=== PATIENT | female | born 1960 | race Caucasian/White ===

== ENCOUNTER 2017-09-23 11:00 | Outpatient (RCR) | payer BC ==
[~2017-09-23 11:00] MED LIST: AMBIEN10 MG PO; DITROPAN XL5 MG PO; TYLENOL # 31 EA PO
== END 2017-09-26 ==
LOC: OT 11:00
PROVIDERS: ATTEND Plastic Surgery
DX: M20.021 Boutonniere deformity of right finger(s) (principal); M79.641 Pain in right hand; M25.641 Stiffness of right hand, not elsewhere classified
CPT/HCPCS: 97010 ×5; 97110 ×5; 97165; L3933

== ENCOUNTER → 2018-06-13 | Day surgery (SDC) | payer BC ==
[~2018-06-13] MED LIST changes: +ACETAMINOPHEN 1000 MG/100 ML IV ONE; +AMLODIPINE BESYL5 MG PO; +BUPIVACAINE HCL 0.5% INJ 30 ML VIAL INJ ONE; +CEFAZOLIN SOD 1 GM VIAL ONE; +DEXAMETHASONE SOD PHOS INJ 4 MG/ML VIAL ONE; +FENTANYL CITRATE/PF 100MCG/2 ML INJ ONE; +KETOROLAC TROMETHAMINE 30 MG/ML VIAL ONE; +LIDOCAINE HCL 2% LOCAL INJ 5 ML SDV VIAL INJ ONE; +MAGNESIUM PO; +MIDAZOLAM HCL 2 MG/2 ML VIAL ONE; +ONDANSETRON HCL INJ 2 MG/ML VIAL ONE; +PROBIOTIC PO; +PROPOFOL IV EMULSION 10 MG/ML 20 ML VIAL ONE; +SEVOFLURANE INHAL SOLN 250 ML PEN BTL ONE; +VITAMIN D PO
--- NOTE | 2018-06-13 08:28 | Operative Report ---
DATE OF PROCEDURE: June 13, 2018 PREOPERATIVE DIAGNOSIS: Left ankle fracture lateral malleolus. POSTOPERATIVE DIAGNOSIS: Left ankle fracture lateral malleolus. PLANNED PROCEDURES: Left lateral malleolus open reduction and internal fixation. CARDIOTHORACIC ANESTHESIA TECHNICIAN: Tanja Rubi DPM ANESTHESIA: General with a postoperative block consisting of 10 mL of 0.5% Marcaine plain. HEMOSTASIS: Pneumatic thigh tourniquet set at 350 mmHg for a total time of approximately 40 minutes. MATERIALS: One Crzyfish 6-hole distal fibular anatomic plate; 7 screws, combination of locking and nonlocking, measuring between 12 mm and 16 mm; 3-0 Vicryl and 4-0 Prolene. PATHOLOGY: None. ESTIMATED BLOOD LOSS: Less than 10 mL. DETAILS OF PROCEDURE: Patient was seen in the preoperative waiting room where the correct procedure and site were identified. The patient was brought to the operating room and placed on the operating table in supine position. General anesthesia was initiated at this time. A well-padded pneumatic tourniquet was placed about the patient's left thigh. The left foot, ankle and leg were then scrubbed, prepped and draped in the usual aseptic manner. The left foot, ankle and leg were exsanguinated with an Esmarch bandage, and the pneumatic thigh tourniquet was inflated to 350 mmHg for a total time of approximately 40 minutes. Attention was directed to the lateral aspect of the left ankle where a 6-cm linear incision was made directly over the lateral malleolus. Incision was carried through the subcutaneous tissue, them from deeper underlying structures. It should be noted that a moderate amount of subcutaneous fat was present. The incision was carried down to the level of the fibula. Care was ensured to make sure that the periosteum remained intact. The fracture site was approximately 4 to 5 weeks old so mild bony callus was noted. However, the fracture site appeared to be stable and no movement was noted along the fracture site. The decision was made to apply an anatomic plate. Per process control manager protocol, the anatomic plate was first temporarily fixated and confirmed to be in correct location with intraoperative fluoroscopy. Next, utilizing a combination of locking and nonlocking screws, the fixation was stable and confirmed via intraoperative fluoroscopy. The intraoperative hook test revealed no increase in medial clear space as well as tib-fib overlap. The decision was made not to place a syndesmotic screw. The wound was then flushed with copious amounts of sterile saline. Deep tissue was reapproximated with 3-0 Vicryl, subcutaneous tissue with 3-0 Vicryl, and the skin was closed using a running interlocking suture with 4-0 Prolene. The incision site was then dressed with Adaptic, 4 x 4's, Kerlix, Thaddeus wrap and a postop shoe. The patient tolerated the procedure and anesthesia well. Patient was transferred to postoperative recovery unit with vital signs stable and vascular status intact. The patient was monitored there for a short period time before being sent home with the following written and oral instructions: 1. Keep the dressing clean, dry and tact. 2. The patient is to remain non nonweightbearing to the left lower extremity and to avoid excessive ambulation until being seen in the office. 3. Patient was given the office number and instructed to contact us if any problems should arise. Dictated by Tanja Rubi DPM. Job#: [id number] WINIFRED
[2018-06-13 08:30] VITALS: BP 126/78
== END | disposition home or self-care (01) ==
LOC: OR 05:06
PROVIDERS: ATTEND Podiatrist Foot & Ankle Surgery
DX: S82.62XA Displaced fracture of lateral malleolus of left fibula, initial encounter for closed fracture (principal); M06.9 Rheumatoid arthritis, unspecified; I10 Essential (primary) hypertension; G47.33 Obstructive sleep apnea (adult) (pediatric); F41.9 Anxiety disorder, unspecified; K21.9 Gastro-esophageal reflux disease without esophagitis; X58.XXXA Exposure to other specified factors, initial encounter; Z01.810 Encounter for preprocedural cardiovascular examination; Z87.440 Personal history of urinary (tract) infections
CPT/HCPCS: 27792; 93005; J0690; J1100; J1885; J2001; J2250; J2405

== ENCOUNTER → 2018-10-24 | Outpatient (CLI) | payer BC ==
[~2018-10-24] MED LIST changes: -ACETAMINOPHEN 1000 MG/100 ML IV ONE; -BUPIVACAINE HCL 0.5% INJ 30 ML VIAL INJ ONE; -CEFAZOLIN SOD 1 GM VIAL ONE; -DEXAMETHASONE SOD PHOS INJ 4 MG/ML VIAL ONE; -FENTANYL CITRATE/PF 100MCG/2 ML INJ ONE; -KETOROLAC TROMETHAMINE 30 MG/ML VIAL ONE; -LIDOCAINE HCL 2% LOCAL INJ 5 ML SDV VIAL INJ ONE; -MIDAZOLAM HCL 2 MG/2 ML VIAL ONE; -ONDANSETRON HCL INJ 2 MG/ML VIAL ONE; -PROPOFOL IV EMULSION 10 MG/ML 20 ML VIAL ONE; -SEVOFLURANE INHAL SOLN 250 ML PEN BTL ONE
[2018-10-24 08:31] LABS: INR 0.79; PROTHROMBIN TIME 11.7 seconds (11.9-14.5)
[2018-10-24 08:32] LABS: PARTIAL THROMBOPLASTIN TIME 31.3 seconds (23.8-35.5)
[2018-10-24 09:11] LABS: BLOOD UREA NITROGEN 15 mg/dL (7-26); EST GLOMERULAR FILTRATION RATE > 60 ML/MIN (60-)
[2018-10-24 09:12] LABS: BUN/CREATININE RATIO 19 (6-25); CREATININE, SERUM 0.81 mg/dL (0.57-1.11)
--- NOTE | 2018-10-24 10:01 | Diagnostic Imaging Report ---
Examination: Single AP view of the chest. COMPARISON: None. INDICATION: PICC placement, UTI DISCUSSION: Right upper extremity PICC is noted. The tip projects over the expected region of the low superior vena cava. Lungs are well-inflated and without consolidation or effusion. Cardiomediastinal contour and pulmonary vasculature are within normal limits for portable, AP technique. No acute osseous abnormalities. Healed fracture of the posterior right sixth rib. Right upper quadrant surgical clips likely related to prior cholecystectomy. IMPRESSION: Right upper extremity PICC, appropriately positioned as above. Clear lungs. Signed by: Dr. Emory James M.D. on 10/24/2018 9:58 AM
== END ==
LOC: DX 07:11
PROVIDERS: ATTEND Internal Medicine Infectious Disease
DX: N39.0 Urinary tract infection, site not specified (principal)
CPT/HCPCS: 36415; 36569; 71045; 82565; 84520; 85049; 85610; 85730

== ENCOUNTER → 2018-12-09 | Day surgery (SDC) | payer BC ==
--- NOTE | 2018-12-06 13:18 | Diagnostic Imaging Report ---
EXAM: Abdomen 2 Views INDICATION: Pre-op. COMPARISON: Reports from CT abdomen/pelvis 10/14/2016 and KUB 11/06/2016, although the images are not available for review. FINDINGS: Previously noted right internal ureteral stent is not present. There is a 2 mm calcification overlying the left lower pole kidney and a 2 mm calcification overlying the left upper pole kidney. Multiple calcifications in the pelvis are presumably phleboliths, but incompletely evaluated by radiograph. Nonobstructive bowel gas pattern. Status post cholecystectomy. No acute osseous abnormality. IMPRESSION: Possible left-sided renal stones measuring 2 mm. Multiple calcifications in the pelvis are presumably phleboliths, but incompletely evaluated by radiograph. Signed by: Dr. Magali Fam MD on 12/06/2018 1:15 PM
[~2018-12-09] MED LIST changes: +BELLADONNA/OPIUM 30 MG SUPP RC ONE; +CEFTRIAXONE SOD 1 GM/NS 50 ML 50 ML IV ONE; +DEXAMETHASONE SOD PHOS INJ 4 MG/ML VIAL ONE; +FENTANYL CITRATE/PF 100MCG/2 ML INJ ONE; +IOPAMIDOL 200 MG/ML 20 ML VIAL IT ONE; +IOPAMIDOL 610MG/1ML 300 MG/ML VIAL IV ONE; +LIDOCAINE HCL 2% LOCAL INJ 5 ML SDV VIAL INJ ONE; +MIDAZOLAM HCL 2 MG/2 ML VIAL ONE; +ONDANSETRON HCL INJ 2MG/ML 2ML 2 MG/ML VIAL ONE; +PROPOFOL IV EMULSION 10 MG/ML 20 ML VIAL ONE; +SEVOFLURANE INHAL SOLN 250 ML PEN BTL ONE
--- OUTSIDE RECORDS SUMMARY | 2018-12-09 05:09 | XMS REPORT ---
Author Author [facility] Address Unknown Phone Unavailable Care Team Providers Care Instructional Supervisor Name Role Phone SHELBY ROSEN Unavailable Unavailable CHERYL NUNES Unavailable Unavailable Problems This patient has no known problems. Allergies, Adverse Reactions, Alerts This patient has no known allergies or adverse reactions. Medications This patient has no known medications. Results Test Description Test Time Test Comments Text Results Atomic Results Result Comments ABDOMEN-1VIEW ([facility]) 2018-12-06 13:08:00 [facility] [address] [address] Patient Name: BRISEIDA HECTOR MR #: [id number] : 1960 Age/Sex: 58/F Req #: [id number] Adm Physician: Ordered by: SHELBY ROSEN MD Report #: [id number] Location: OR Room/Bed: Procedure: [id number] DX/ABDOMEN-1VIEW ([facility]) Exam Date: 12/06/18 Exam Time: 1238 REPORT STATUS: Signed EXAM: Abdomen 2 Views INDICATION: Pre-op. COMPARISON: Reports from CT abdomen/pelvis 10/14/2016 and KUB 11/06/2016, although the images are not available for review. FINDINGS: Previously noted right internal ureteral stent is not present. There is a 2 mm calcification overlying the left lower pole kidney and a 2 mm calcification overlying the left upper pole kidney. Multiple calcifications in the pelvis are presumably phleboliths, but incompletely evaluated by radiograph. Nonobstructive bowel gas pattern. Status post cholecystectomy. No acute osseous abnormality. IMPRESSION: Possible left-sided renal stones measur ing 2 mm. Multiple calcifications in the pelvis are presumably phleboliths, but incompletely evaluated by radiograph. Signed by: Dr. Ciera Fam MD on 12/06/2018 1:15 PM Dictated By: CIERA FAM MD 14 Transcribed By: LEYLA on 12/06/181314 COPY TO: SHELBY ROSEN MD CHEST XRAY LINE PLACEMENT 2018-10-24 09:56:[address] [address] Patient Name: BRISEIDA HECTOR MR #: [id number] : 1960 Age/Sex: 58/F Req #: [id number] Adm Physician: Ordered by: CHERYL NUNES MD Report #: [id number] Location: DX Room/Bed: Procedure: [id number] DX/CHEST XRAY LINE PLACEMENT Exam Date: 10/24/18 Exam Time: 0900 REPORT STATUS: Signed Examination: Single AP view of the chest. COMPARIS ON: None. INDICATION: PICC placement, UTI DISCUSSION: Right upper extremity PICC is noted. The tip projects over the expected region of the low superior vena cava. Lungs are well-inflated and without consolidation or effusion. Cardiomediastinal contour and pulmonary vasculature are within normal limits for portable, AP technique. No acute osseous abnormalities. Healed fracture of the posterior right sixth rib. Right upper quadrant surgical clips likely related to prior cholecystectomy. IMPRESSION: Right upper extremity PICC, appropriately positioned as above. Clear lungs. Signed by: Dr. Hilda Park M.D. on 10/24/2018 9:58 AM Dictated By: HILDA PARK MD 7 Transcribed By: LEYLA on 10/24/18957 COPY TO: CHERYL NUNES MD
[2018-12-09 09:00] VITALS: BP 112/72
--- NOTE | 2019-01-25 06:23 | Operative Report ---
DATE OF PROCEDURE: 12/09/2018 SURGEON: Flaco Casanova MD PREOPERATIVE DIAGNOSES: 1. Left nephrolithiasis. 2. Urinary tract infections. POSTOPERATIVE DIAGNOSES: 1. Left nephrolithiasis. 2. Urinary tract infections. 3. Grade 2 cystocele. 4. Grade 1 rectocele. 5. Urethral hypermobility. 6. Atrophic (senile) vaginitis. OPERATION PERFORMED: 1. Left-sided extracorporeal shockwave lithotripsy (separate staged procedure performed for the left-sided nephrolithiasis). 2. Cystourethroscopy with bilateral ureteral catheterization and retrograde ureteropyelography (separately performed for the urinary tract infections). 3. Interpretation of retrograde ureteropyelography. 4. Supervision of fluoroscopy, no radiologist present. 5. Pelvic examination under anesthesia. ANESTHESIA: General. COMPLICATIONS: None. CLINICAL SUMMARY: Suzette Hdz is a 58-year-old woman with the above preoperative diagnoses. She is brought for the above procedures. She is aware of the risks of bleeding, infection, injury to adjacent structures, need for additional procedures and elected to proceed. OPERATIVE PROCEDURE IN DETAIL: Informed consent was verified. Suzette Hdz was properly identified, taken to the operating room, placed on the lithotripsy table in supine position. Anesthesia was uneventfully begun. The patient's left nephrolithiasis was localized with biplanar fluoroscopy. A total of 3000 shocks were delivered to the 5 mm stone with fragmentation noted. The patient was then carefully and gently repositioned in the dorsal lithotomy position with all pressure points well padded. Her genitalia were prepared and draped in usual sterile fashion. The cystoscope sheath with obturator in place was atraumatically inserted into the patient's urethra and the bladder was drained. Panendoscopy revealed no suspicious mucosal lesions, no tumors, no stones, and no diverticula. Grade 1 trabeculations were noted. Mild trigonitis was noted and some crystal formation was noted on the mucosa of the trigone. No suspicious lesions were identified. An 8-Italian catheter was used to cannulate each ureter and retrograde ureteropyelograms were performed. Interpretation of retrograde ureteropyelography: Contrast was instilled in retrograde fashion bilaterally. There were no tumors. There were no suspicious lesions. There was no hydronephrosis. Unobstructed drainage was observed bilaterally fluoroscopically through filling defect on the left hand side corresponding to the region where we fragmented the patient's stone, this was attributed to stone, debris and blood clots. The patient's bladder was drained. Cystoscope was withdrawn. Pelvic examination under anesthesia revealed a grade 2 cystocele, grade 1 rectocele. There was urethral hypermobility and atrophic vaginitis. No suspicious mucosal lesions were identified. There was no obvious mucosal lesions could be witnessed. No abnormal palpable pelvic masses could be appreciated. The patient was then uneventfully reversed from anesthesia and taken to the recovery room in stable condition. Explicit postop instructions were given for the patient up in the office, of course ongoing urological followup is a must. Flaco MD Jocelyne OH/MODL /[id number] cc: Arik Meadows MD
== END | disposition home or self-care (01) ==
LOC: OR 05:07
PROVIDERS: ATTEND Urology
DX: N20.0 Calculus of kidney (principal); N30.30 Trigonitis without hematuria; N32.89 Other specified disorders of bladder; N81.10 Cystocele, unspecified; N81.6 Rectocele; N36.41 Hypermobility of urethra; N95.2 Postmenopausal atrophic vaginitis; G47.33 Obstructive sleep apnea (adult) (pediatric); M06.9 Rheumatoid arthritis, unspecified; I10 Essential (primary) hypertension; R00.1 Bradycardia, unspecified; Z01.810 Encounter for preprocedural cardiovascular examination; Z68.34 Body mass index [BMI] 34.0-34.9, adult
CPT/HCPCS: 50590; 52005; 74018; 93005; C1758; J0696; J1100; J2001; J2250; J2405; J2704; Q9967

== ENCOUNTER 2020-03-15 09:55 | Observation (INO) | payer BC, OTHER ==
[~2020-03-15] VITALS: Ht 157.5 cm; Wt 86.2 kg
[~2020-03-15 09:55] MED LIST changes: -BELLADONNA/OPIUM 30 MG SUPP RC ONE; -CEFTRIAXONE SOD 1 GM/NS 50 ML 50 ML IV ONE; -DEXAMETHASONE SOD PHOS INJ 4 MG/ML VIAL ONE; -FENTANYL CITRATE/PF 100MCG/2 ML INJ ONE; -IOPAMIDOL 200 MG/ML 20 ML VIAL IT ONE; -IOPAMIDOL 610MG/1ML 300 MG/ML VIAL IV ONE; -LIDOCAINE HCL 2% LOCAL INJ 5 ML SDV VIAL INJ ONE; -MIDAZOLAM HCL 2 MG/2 ML VIAL ONE; -ONDANSETRON HCL INJ 2MG/ML 2ML 2 MG/ML VIAL ONE; -PROPOFOL IV EMULSION 10 MG/ML 20 ML VIAL ONE; -SEVOFLURANE INHAL SOLN 250 ML PEN BTL ONE
[2020-03-15] MEDS ORDERED: SODIUM CHLORIDE 0.9% 1000ML 1,000 ML IV STA (10:11)
[2020-03-15 10:56] LABS: BASOPHILS % 0.4 % (0.0-1.0); EOSINOPHILS # (AUTO) 0.1 (0.0-0.4); EOSINOPHILS % 1.5 % (0.0-6.0); HEMOGLOBIN 14.3 g/dL (12.0-16.0); LYMPHOCYTES # (AUTO) 1.6 (1.0-3.2); LYMPHOCYTES % 19.6 % (18.0-39.1); MEAN CORPUSCULAR HEMOGLOBIN 32.1 pg (28-32); MEAN CORPUSCULAR HGB CONC 32.5 g/dL (31-35); MEAN CORPUSCULAR VOLUME 98.9 fL (81-99); MONOCYTES # (AUTO) 0.7 (0.2-0.8); MONOCYTES % 8.3 % (4.4-11.3); NEUTROPHILS # (AUTO) 5.6 (2.1-6.9); NEUTROPHILS % 69.5 % (38.7-80.0); PLATELET COUNT 295 x10e3/uL (140-360); RED BLOOD COUNT 4.45 x10e6/uL (3.6-5.1); RED CELL DISTRIBUTION WIDTH 13.5 % (11.7-14.4)
[2020-03-15 11:05] LABS: COLOR,URINE YELLOW (YELLOW)
[2020-03-15 11:06] LABS: BILIRUBIN,URINE NEGATIVE (NEGATIVE); CLARITY,URINE SL CLOUDY (CLEAR); KETONES,URINE NEGATIVE (NEGATIVE); LEUKOCYTE ESTERASE ,URINE TRACE (NEGATIVE); NITRITE,URINE NEGATIVE (NEGATIVE); PROTEIN,URINE DIPSTICK NEGATIVE (NEGATIVE); URINE UROBILINOGEN 0.2 mg/dL (0.2 - 1)
[2020-03-15 11:14] LABS: ALANINE AMINOTRANSFERASE 23 IU/L (0-55); ALBUMIN 3.6 g/dL (3.5-5.0); ALBUMIN/GLOBULIN RATIO 1.1 (0.8-2.0); ALKALINE PHOSPHATASE 98 IU/L (40-150); ANION GAP 11.4 mmol/L (8-16); BLOOD UREA NITROGEN 12 mg/dL (7-26); BUN/CREATININE RATIO 14 (6-25); CALCIUM 9.2 mg/dL (8.4-10.2); CARBON DIOXIDE 27 mmol/L (22-29); CHLORIDE 105 mmol/L (98-107); CREATINE KINASE 38 IU/L (29-168); CREATININE, SERUM 0.84 mg/dL (0.57-1.11); EST GLOMERULAR FILTRATION RATE > 60 ML/MIN (60-); GLUCOSE 105 mg/dL (74-118); POTASSIUM 3.4 mmol/L (3.5-5.1); SODIUM 140 mmol/L (136-145)
--- NOTE | 2020-03-15 11:18 | Emergency Department Note ---
History of Present Illnes History of Present Illness Chief Complaint: Chest Pain History of Present Illness This is a 59 year old female arrived to the ED with complaints of palpitations and intermittent chest pain since last night. Patient's concerned that symptoms began because of a Toradol shot she got. . Chief Complaint Comment PATIENT IN FROM HOME WITH COMPLAINTS OF PALPITATIONS STARTING LAST NIGHT. PATIENT STATES THAT SHE GOT A TORADOL INJECTION YESTERDAY AT APPROX 0930, AND STARTED HAVING PALPITATIONS LAST NIGHT AROUND 2100. PATIENT ALSO WITH COMPLAINTS OF DARK URINE STARTING LAST NIGHT ALSO. PATIENT ALERT AND OREINTED, RESP EVEN AND NONLABORED, APPEARS IN NO DISTRESS Historian: Patient Arrival Mode: Car Onset (how long ago): day(s) Severity: mild Onset quality: sudden Timing of current episode: intermittent Progression: waxing and waning Past Medical/Family History Physician Review I have reviewed the patient's past medical and family history. Any updates have been documented here. Past Medical History Recent Fever: No Clinical Suspicion of Infectio: No New/Unexplained Change in Ment: No Past Medical History: Kidney Stones, GERD Other Medical History: GERD RHEUMATOID ARTHRITIS MITRAL VALVE PROLAPSE Past Surgical History: Cholecysctectomy, Other Surgery: Social History Smoking Cessation: Never Smoker Counseling Performed: No Any Illegal Drug Use: No Other Last Tetanus: UNK Review of Systems Review of Systems Constitutional: Reports no symptoms EENTM: Reports no symptoms Cardiovascular: Reports as per HPI, Reports palpitations Respiratory: Reports no symptoms Gastrointestinal: Reports no symptoms Genitourinary: Reports no symptoms Musculoskeletal: Reports no symptoms Integumentary: Reports no symptoms Neurological: Reports no symptoms Psychological: Reports no symptoms Endocrine: Reports no symptoms Hematological/Lymphatic: Reports no symptoms Physical Exam Related Data Allergies: Coded Allergies: No Known Allergies (Unverified , 10/14/16) Triage Vital Signs Vital Signs Date Time Temp Pulse Resp B/P (MAP) Pulse Ox O2 Delivery O2 Flow Rate FiO2 03/15/20 10:03 96.4 71 18 161/106 98 Vital signs reviewed: Yes Physical Exam CONSTITUTIONAL Constitutional: Present well-developed, Present well-nourished HENT HENT: Present normocephalic, Present atraumatic, Present oropharynx clear/moist, Present nose normal HENT L/R: Present left ext ear normal, Present right ext ear normal EYES Eyes: Reports PERRL, Reports conjunctivae normal NECK Neck: Present ROM normal PULMONARY Pulmonary: Present effort normal, Present breath sounds normal CARDIOVASCULAR Cardiovascular: Present irregular rhythm, Present capillary refill normal, Present normal rate GASTROINTESTINAL Abdominal: Present soft, Present nontender, Present bowel sounds normal GENITOURINARY Genitourinary: Present exam deferred SKIN Skin: Present warm, Present dry MUSCULOSKELETAL Musculoskeletal: Present ROM normal NEUROLOGICAL Neurological: Present alert, Present oriented x 3, Present no gross motor or sensory deficits PSYCHOLOGICAL Psychological: Present mood/affect normal, Present judgement normal Results Laboratory Result Diagram: 03/15/20 1021 Laboratory Laboratory Tests Test 03/15/20 10:21 White Blood Count 8.03 x10e3/uL (4.8-10.8) Red Blood Count 4.45 x10e6/uL (3.6-5.1) Hemoglobin 14.3 g/dL (12.0-16.0) Hematocrit 44.0 % (34.2-44.1) Mean Corpuscular Volume 98.9 fL (81-99) Mean Corpuscular Hemoglobin 32.1 pg (28-32) Mean Corpuscular Hemoglobin Concent 32.5 g/dL (31-35) Red Cell Distribution Width 13.5 % (11.7-14.4) Platelet Count 295 x10e3/uL (140-360) Neutrophils (%) (Auto) 69.5 % (38.7-80.0) Lymphocytes (%) (Auto) 19.6 % (18.0-39.1) Monocytes (%) (Auto) 8.3 % (4.4-11.3) Eosinophils (%) (Auto) 1.5 % (0.0-6.0) Basophils (%) (Auto) 0.4 % (0.0-1.0) Neutrophils # (Auto) 5.6 (2.1-6.9) Lymphocytes # (Auto) 1.6 (1.0-3.2) Monocytes # (Auto) 0.7 (0.2-0.8) Eosinophils # (Auto) 0.1 (0.0-0.4) Basophils # (Auto) 0.0 (0.0-0.1) Absolute Immature Granulocyte (auto 0.06 x10e3/uL (0-0.1) Urine Color Yellow (YELLOW) Urine Clarity Sl cloudy (CLEAR) Urine pH 5.5 (5 - 7) Urine Specific [place] 1.030 (1.010-1.025) Urine Protein Negative (NEGATIVE) Urine Glucose (UA) Negative (NEGATIVE) Urine Ketones Negative (NEGATIVE) Urine Blood Trace (NEGATIVE) Urine Nitrite Negative (NEGATIVE) Urine Bilirubin Negative (NEGATIVE) Urine Urobilinogen 0.2 mg/dL (0.2 - 1) Urine Leukocyte Esterase Trace (NEGATIVE) Lab results reviewed: Yes Laboratory comments Laboratory Tests Test 03/15/20 10:21 White Blood Count 8.03 x10e3/uL (4.8-10.8) Red Blood Count 4.45 x10e6/uL (3.6-5.1) Hemoglobin 14.3 g/dL (12.0-16.0) Hematocrit 44.0 % (34.2-44.1) Mean Corpuscular Volume 98.9 fL (81-99) Mean Corpuscular Hemoglobin 32.1 pg (28-32) Mean Corpuscular Hemoglobin Concent 32.5 g/dL (31-35) Red Cell Distribution Width 13.5 % (11.7-14.4) Platelet Count 295 x10e3/uL (140-360) Neutrophils (%) (Auto) 69.5 % (38.7-80.0) Lymphocytes (%) (Auto) 19.6 % (18.0-39.1) Monocytes (%) (Auto) 8.3 % (4.4-11.3) Eosinophils (%) (Auto) 1.5 % (0.0-6.0) Basophils (%) (Auto) 0.4 % (0.0-1.0) Neutrophils # (Auto) 5.6 (2.1-6.9) Lymphocytes # (Auto) 1.6 (1.0-3.2) Monocytes # (Auto) 0.7 (0.2-0.8) Eosinophils # (Auto) 0.1 (0.0-0.4) Basophils # (Auto) 0.0 (0.0-0.1) Absolute Immature Granulocyte (auto 0.06 x10e3/uL (0-0.1) Urine Color Yellow (YELLOW) Urine Clarity Sl cloudy (CLEAR) Urine pH 5.5 (5 - 7) Urine Specific [place] 1.030 (1.010-1.025) Urine Protein Negative (NEGATIVE) Urine Glucose (UA) Negative (NEGATIVE) Urine Ketones Negative (NEGATIVE) Urine Blood Trace (NEGATIVE) Urine Nitrite Negative (NEGATIVE) Urine Bilirubin Negative (NEGATIVE) Urine Urobilinogen 0.2 mg/dL (0.2 - 1) Urine Leukocyte Esterase Trace (NEGATIVE) Sodium Level 140 mmol/L (136-145) Potassium Level 3.4 mmol/L (3.5-5.1) Chloride Level 105 mmol/L (98-107) Carbon Dioxide Level 27 mmol/L (22-29) Anion Gap 11.4 mmol/L (8-16) Blood Urea Nitrogen 12 mg/dL (7-26) Creatinine 0.84 mg/dL (0.57-1.11) Estimat Glomerular Filtration Rate > 60 ML/MIN (60-) BUN/Creatinine Ratio 14 (6-25) Glucose Level 105 mg/dL (74-118) Calcium Level 9.2 mg/dL (8.4-10.2) Total Bilirubin 0.9 mg/dL (0.2-1.2) Aspartate Amino Transf (AST/SGOT) 18 IU/L (5-34) Alanine Aminotransferase (ALT/SGPT) 23 IU/L (0-55) Alkaline Phosphatase 98 IU/L (40-150) Creatine Kinase 38 IU/L (29-168) Total Protein 6.9 g/dL (6.5-8.1) Albumin 3.6 g/dL (3.5-5.0) Globulin 3.3 g/dL (2.3-3.5) Albumin/Globulin Ratio 1.1 (0.8-2.0) Imaging Imaging results reviewed: Yes Procedures 12 Lead ECG Interpretation ECG Interpretation : ECG: ECG 1 Prior ECG tracings: reviewed Rhythm: sinus rhythm Ectopy: atrial premature contractions Rate: normal QRS axis: normal Clinical Impression: abnormal ECG Assessment & Plan Medical Decision Making MDM 59-year-old female arrives to the ED with a complaint of palpitations. EKG noted to have some PACs, while on telemetry patient noted to have multiple runs of bigeminy. Discussed case with Dr. Meadows, agree with admission, cardiology consulted. Assessment & Plan Final Impression: (1) Chest pain (2) Palpitations Depart Disposition: ADMITTED Last Vital Signs Date Time Temp Pulse Resp B/P (MAP) Pulse Ox O2 Delivery O2 Flow Rate FiO2 6/19/20 10:03 96.4 71 18 161/106 98 Home Meds Reported Medications [Vitamin D] No Conflict Check, PO DAILY 06/09/18 Zolpidem Tartrate (AMBIEN) 10 Mg Tablet, 10 MG PO HS PRN for INSOMNIA, #30 TAB 10/14/16 Medications in the ED Sodium Chloride 1,000 ml @ 0 mls/hr Q0M STAT IV ; Start 03/15/20 at 10:11; Stop 03/15/20 at 10:13; Status DC MARC GREENWOOD, DO Mar 15, 2020 11:18
[2020-03-15 11:19] LABS: BACTERIA,URINE FEW /HPF; EPITHELIAL CELLS,URINE RARE /LPF; RBC,URINE 0-5 /HPF (0-5); WBC,URINE (MAN) 0-5 /HPF (0-5)
--- NOTE | 2020-03-15 12:58 | Diagnostic Imaging Report ---
TECHNIQUE: Frontal view of the chest. INDICATION: 59-year-old woman with chest pain. COMPARISON: Chest radiograph 10/24/2018. FINDINGS: LINES/TUBES: None. LUNGS: The lungs are well inflated and clear. PLEURA: No pneumothorax or significant pleural effusion. HEART AND MEDIASTINUM: The cardiomediastinal silhouette is within normal limits. SOFT TISSUES AND BONES: Unchanged chronic posttraumatic deformity of the right sixth rib. Soft tissues are unremarkable. IMPRESSION: No acute cardiopulmonary abnormalities. Signed by: Angeles Bolton MD on 03/15/2020 12:54 PM
--- NOTE | 2020-03-15 13:13 | NUR ---
RCD PT FROM ER BY BED PT IS ALERT AND ORIENTED VITALS CHECKED PT RESTING ON BED NO DISTRESS NOTED IV PATENT BY SALINE FLUSH ADMISSION ASSESSMENT AND HISTORY DONE INSTRUCTED THE PT AND FAMILY REGARDING HOSPITAL POLICY AND VISITORS POLICY AND HOSPITAL ROUTINE BED LOW AND LOCKED CALL LIGHT IN REACH
[2020-03-15 13:20] VITALS: BP 125/73
[2020-03-15 14:19] VITALS: BP 125/73
[2020-03-15 14:27] VITALS: BP 125/73
[2020-03-15 16:00] VITALS: BP 135/74
--- NOTE | 2020-03-15 18:42 | NUR ---
PT RESTING ON BED BED SIDE REPORT GIVEN TO ONCOMING NURSE
--- NOTE | 2020-03-15 18:45 | Consultation ---
DATE OF CONSULTATION: Cardiology Consultation Note REASON FOR CONSULTATION: Chest pain and palpitations. HISTORY OF PRESENT ILLNESS: This is a 59-year-old woman, who has a history of rheumatoid arthritis, gastroesophageal reflux disease, hypertension, mitral valve prolapse, who presented to emergency department with palpitations and chest discomfort. She states that she had a Toradol shot by her edger operator yesterday for her RA and a few hours later, felt sudden heart racing, [id number] in intensity, continuous and gradually worsening associated with some atypical chest discomfort. Upon arrival here, she was noted to be mildly hypertensive, ruled out for acute myocardial infarction and the electrocardiogram showed normal sinus rhythm with PACs. REVIEW OF SYSTEMS: A 12-point review of system was conducted, is negative as stated in the HPI. PAST MEDICAL HISTORY: As stated above in the HPI. PAST SURGICAL HISTORY: . PAST FAMILY HISTORY: Noncontributory to current illness. ALLERGIES: NO KNOWN DRUG ALLERGIES. SOCIAL HISTORY: No illicit drug, alcohol, or tobacco use. MEDICATIONS: See medication reconciliation form. PHYSICAL EXAMINATION: VITAL SIGNS: Temperature 98.2, heart rate 70, respirations are 22, blood pressure is 135/74, oxygen saturation is 98% on room air. GENERAL: A well-appearing, well built, in no apparent distress. Alert and oriented x3. HEAD: Normocephalic and atraumatic. EYES: The extraocular muscles are intact. Conjunctivae are clear. NECK: No JVD. No bruits. CARDIOVASCULAR: She has regular rate and rhythm. LUNGS: Clear to auscultation. ABDOMEN: Soft, nontender, nondistended. EXTREMITIES: No clubbing, cyanosis, or edema. VASCULAR: 2+ pulses. SKIN: Warm, dry, and intact. NEUROLOGIC: No focal deficits noted. Cranial nerves grossly intact. PSYCHIATRIC: Normal mood and affect. LABORATORY DATA: Reviewed. Potassium was mildly low at 3.4. Creatinine was normal. Liver function tests were normal. CK-MB and troponin were normal. A 12-lead electrocardiogram showed normal sinus rhythm with PACs. Chest x-ray showed no acute cardiopulmonary abnormality. IMPRESSION: 1. Precordial pain. 2. Premature atrial complexes. 3. Rheumatoid arthritis. 4. Hypokalemia. RECOMMENDATIONS: Continue to monitor the patient on telemetry. Correct electrolyte abnormalities. Keep potassium greater than 4 and magnesium around 2. We will check a 2D echocardiogram to assess left ventricular systolic function. May need to consider beta-blockade if PACs return despite normalization of her electrolytes. We will continue to follow along with you. DO WILFRID Fay/MAURIZIOL /[id number]
[2020-03-15 19:11] LABS: CREATINE KINASE MB 0.4 ng/mL (0-5.0)
[2020-03-15 20:00] VITALS: BP_SYST 126; BP_SYST 128; BP_SYST 134; BP_DIAS 69; BP_DIAS 75; BP_DIAS 84
[2020-03-15 21:35] VITALS: BP 128/69
[2020-03-16] VITALS: BP 134/75
[2020-03-16 01:44] LABS: CREATINE KINASE 29 IU/L (29-168)
[2020-03-16 04:00] VITALS: BP 127/92
[2020-03-16 06:00] LABS: CREATINE KINASE 30 IU/L (29-168)
--- NOTE | 2020-03-16 07:00 | NUR ---
RCD PT AT BED PT IS ALERT AND ORIENTED PT RESTING ON BED IV PATENT BED LOW AND LOCKED CALL LIGHT IN REACH
[2020-03-16 07:30] LABS: BLOOD UREA NITROGEN 10 mg/dL (7-26); BUN/CREATININE RATIO 14 (6-25); CALCIUM 8.5 mg/dL (8.4-10.2); CARBON DIOXIDE 24 mmol/L (22-29); CHLORIDE 112 mmol/L (98-107); EST GLOMERULAR FILTRATION RATE > 60 ML/MIN (60-); GLUCOSE 106 mg/dL (74-118); SODIUM 142 mmol/L (136-145)
[2020-03-16 08:00] VITALS: BP 163/79
[2020-03-16 08:05] LABS: THYROID STIMULATING HORMONE 1.006 uIU/mL (0.350-4.940)
--- NOTE | 2020-03-16 08:28 | History and Physical ---
CHIEF COMPLAINT: The patient is here for chest pain and palpitations. HISTORY OF PRESENT ILLNESS: Ms. Suzette Hdz with a history of rheumatoid arthritis, being treated symptomatically with IM Kenalog as needed. The patient decided to change it up because of steroid intake and decided to take a Toradol injection and apparently after the Toradol injection, the patient developed some palpitations and also some chest pain, came into the emergency room, was admitted for paroxysmal atrial contractions and also for chest pain. Troponins have been trended to be negative. The patient is currently feeling fine, in sinus rhythm on the floor. Echo was pending. Otherwise, no complaints. No chest pain. No shortness of breath. No palpitations at this time. REVIEW OF SYSTEMS: Positive for chest pain yesterday. Positive for shortness of breath yesterday. Positive for palpitations yesterday, but apparently, the patient has no symptoms. No nausea, vomiting, or diarrhea. No constipation. No rectal bleeding. No hematochezia. No hematemesis. Positive for joint pains, especially in the elbows and knees. MEDICATIONS: She takes at home. She takes Ambien and amlodipine 5 mg as needed. The patient also has been on phentermine 37.5 mg [id number] as needed. The last time, she took it was back in about a week ago. SOCIAL HISTORY: No EtOH, no IV drug abuse, and no history of smoking. FAMILY HISTORY: Mother with heart disease in the 50s to 60s. PAST SURGICAL HISTORY: History of tubal ligation and history of cholecystectomy. ALLERGIES: NO KNOWN DRUG ALLERGIES. PHYSICAL EXAMINATION: GENERAL: The patient is alert and oriented x3, in good spirits. VITAL SIGNS: Temperature is 98.1, pulse 60, respirations of 17, blood pressure is 127/92, pulse oximetry of 98% on room air. HEENT: Normocephalic, atraumatic. Pupils are reactive to light and accommodation. CVS: S1 and S2 is regular. Normal rhythm. Normal rate. ABDOMEN: Soft, nontender, and nondistended. EXTREMITIES: Trace amount of edema. The patient has bilateral lower extremity slight lymphedema present. Peripheral line is placed on the right side. No complaints there. LABORATORY VALUES: White count is 8.03, hemoglobin of 14.3, and platelet count of 285. Chemistry shows sodium of 140, potassium is 3.4, BUN of 12 and creatinine of 0.84. CK, CK-MB, troponin all trended to be negative less than 0.01 with a troponin I. Urine was negative. Serology; coronavirus is pending. 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 Otherwise, no acute cardiopulmonary abnormalities. ASSESSMENT: Ms. Suzette Hdz is a 59-year-old female with: 1. Chest pain, more atypical. 2. Premature atrial contractions. Continue monitoring telemetry so far in sinus rhythm. Echocardiogram has been ordered for structural abnormalities. 3. History of rheumatoid arthritis. We will continue symptomatic treatment. 4. Hypokalemia, which has been replaced. PLAN: Check her BMP today to replace to see her potassium. As mentioned by Cardiology to keep potassium above 4 and echocardiogram to assess systolic function, also avoidance of phentermine for right now. Disposition, can be discharged home if echocardiogram and heart are structurally normal. We will continue to monitor the patient and if possible discharge today. Also we will check a thyroid function, to complete evaluation for arrhythmia. Markus Wang MD [facility] /[id number]
[2020-03-16 08:50] VITALS: BP 163/79
[2020-03-16 12:00] VITALS: BP 136/75
[2020-03-16 16:00] VITALS: BP 124/69
--- NOTE | 2020-03-16 16:02 | NUR ---
AC TO DR VALERIA Medrano PT CAN GO HOME PAGED AND NOTIFIED DR AKHTAR GOT THE DISCHARGE ORDER
--- NOTE | 2020-03-16 16:28 | NUR ---
PATIENT WENT HOME IN SAFE CONDITION
[2020-03-16] MEDS ORDERED: ZOLPIDEM TARTRATE 10 MG TAB PO SCH (21:00)
== END 2020-03-16 16:53 | disposition home or self-care (01) ==
LOC: ER 09:55 → ERHOLD 11:49 → MED/SURG2 13:16
PROVIDERS: ADMIT Internal Medicine; ATTEND Internal Medicine
DX: R00.2 Palpitations (principal); M06.9 Rheumatoid arthritis, unspecified; I49.1 Atrial premature depolarization; E87.6 Hypokalemia; R07.89 Other chest pain; E87.8 Other disorders of electrolyte and fluid balance, not elsewhere classified
CPT/HCPCS: 36415; 71045; 80048; 80053; 81001; 82550 ×2; 82553 ×2; 84436; 84443; 84479; 84484 ×2; 85025; 87635; 93005; 93306; 99284; G0378 ×2; J7030

== ENCOUNTER → 2022-01-20 | Day surgery (SDC) | payer BC ==
[2022-01-19 09:19] LABS: BASOPHILS % 0.3 % (0.0-1.0); EOSINOPHILS % 0.4 % (0.0-6.0); HEMATOCRIT 43.8 % (34.2-44.1); HEMOGLOBIN 14.1 g/dL (12.0-16.0); LYMPHOCYTES # (AUTO) 1.7 (1.0-3.2); LYMPHOCYTES % 15.4 % (18.0-39.1); MEAN CORPUSCULAR HEMOGLOBIN 34.9 pg (28-32); MEAN CORPUSCULAR HGB CONC 32.2 g/dL (31-35); MEAN CORPUSCULAR VOLUME 108.4 fL (81-99); MONOCYTES # (AUTO) 0.8 (0.2-0.8); MONOCYTES % 7.4 % (4.4-11.3); NEUTROPHILS # (AUTO) 8.6 (2.1-6.9); NEUTROPHILS % 75.8 % (38.7-80.0); PLATELET COUNT 293 x10e3/uL (140-360); RED BLOOD COUNT 4.04 x10e6/uL (3.6-5.1); RED CELL DISTRIBUTION WIDTH 14.6 % (11.7-14.4)
[~2022-01-20] MED LIST changes: +ACETAMINOPHEN 1000 MG/100 ML IV ONE; +BUPIVACAINE HCL 0.5% INJ 30 ML VIAL INJ ONE; +CEFTRIAXONE 1 GM VIAL ONE; +CEPHALEXIN500 MG PO; +DEXAMETHASONE SOD PHOS INJ 4 MG/ML SDV ONE; +EPINEPHRINE 1 MG/ML 30ML VIAL ONE; +FENTANYL CITRATE/PF 100MCG/2 ML INJ ONE; +GLYCOPYRROLATE INJ 0.2 MG/ML VIAL ONE; +KENALOG-4040 MG/1 ML INJ; +LIDOCAINE HCL 2% LOCAL INJ 5 ML SDV VIAL INJ ONE; +NEOSTIGMINE 1 MG/ML 10ML VIAL ONE; +ONDANSETRON HCL INJ 2MG/ML 2ML 2 MG/ML VIAL ONE; +PHENYLEPHRINE HCL 1% 10 MG/ML VIAL ONE; +POVIDONE IODINE 0.05% 0.05 % ML PO ONE; +PROPOFOL IV EMULSION 10 MG/ML 20 ML VIAL ONE; +ROCURONIUM BROMIDE 10 MG/ML 5ML VIAL IV ONE; +SEVOFLURANE INHAL SOLN 250 ML PEN BTL ONE; +TESTOSTERO100 MG/1 M IV; +TRANEXAMIC ACID 20 ML ONE
[2022-01-20 11:25] VITALS: BP 134/88
== END | disposition home or self-care (01) ==
LOC: OR 06:09
PROVIDERS: ATTEND Orthopaedic Surgery
DX: S42.031A Displaced fracture of lateral end of right clavicle, initial encounter for closed fracture (principal); S43.131A Dislocation of right acromioclavicular joint, greater than 200% displacement, initial encounter; M06.9 Rheumatoid arthritis, unspecified; W18.09XA Striking against other object with subsequent fall, initial encounter; Y93.89 Activity, other specified; Y92.009 Unspecified place in unspecified non-institutional (private) residence as the place of occurrence of the external cause; Y99.8 Other external cause status; Z01.810 Encounter for preprocedural cardiovascular examination; Z01.812 Encounter for preprocedural laboratory examination; Z20.822 Contact with and (suspected) exposure to COVID-19; Z79.899 Other long term (current) drug therapy
CPT/HCPCS: 23515; 23552; 36415; 76000; 85025; 93005; C1713; J0690; J0696; J2704; J3010; U0002; J1100; J2001; J2370; J2405; J2710

== ENCOUNTER 2022-02-18 13:00 | Outpatient (RCR) | payer BC ==
[~2022-02-18 13:00] MED LIST changes: -ACETAMINOPHEN 1000 MG/100 ML IV ONE; -BUPIVACAINE HCL 0.5% INJ 30 ML VIAL INJ ONE; -CEFTRIAXONE 1 GM VIAL ONE; -DEXAMETHASONE SOD PHOS INJ 4 MG/ML SDV ONE; -EPINEPHRINE 1 MG/ML 30ML VIAL ONE; -FENTANYL CITRATE/PF 100MCG/2 ML INJ ONE; -GLYCOPYRROLATE INJ 0.2 MG/ML VIAL ONE; -LIDOCAINE HCL 2% LOCAL INJ 5 ML SDV VIAL INJ ONE; -NEOSTIGMINE 1 MG/ML 10ML VIAL ONE; -ONDANSETRON HCL INJ 2MG/ML 2ML 2 MG/ML VIAL ONE; -PHENYLEPHRINE HCL 1% 10 MG/ML VIAL ONE; -POVIDONE IODINE 0.05% 0.05 % ML PO ONE; -PROPOFOL IV EMULSION 10 MG/ML 20 ML VIAL ONE; -ROCURONIUM BROMIDE 10 MG/ML 5ML VIAL IV ONE; -SEVOFLURANE INHAL SOLN 250 ML PEN BTL ONE; -TRANEXAMIC ACID 20 ML ONE
== END 2022-02-24 ==
LOC: PT 13:00
PROVIDERS: ATTEND Orthopaedic Surgery
DX: S42.031D Displaced fracture of lateral end of right clavicle, subsequent encounter for fracture with routine healing (principal); S42.131D Displaced fracture of coracoid process, right shoulder, subsequent encounter for fracture with routine healing; M25.511 Pain in right shoulder; M25.611 Stiffness of right shoulder, not elsewhere classified; M62.81 Muscle weakness (generalized)